=== PATIENT | female | born 1975 | race Caucasian/White ===

== ENCOUNTER 2023-01-01 04:52 | Inpatient (IN) | payer MEDICAID ==
[~2023-01-01] VITALS: Ht 162.6 cm; Wt 76.4 kg
[~2023-01-01 04:52] MED LIST: CLIN150C8 PO; NO HOME MEDS
[2023-01-01] MEDS ORDERED: normal saline 1000ML IV soln IV ONE (08:05)
[2023-01-01 09:49] LABS: BASOPHILS # (AUTO) 0.1 X10'3 (0-0.2); BASOPHILS % (AUTO) 0.2 % (0-1); EOSINOPHILS % (AUTO) 0 % (0-6); HEMOGLOBIN 13.8 g/dl (12.0-16.0); LYMPHOCYTES # (AUTO) 1.1 X10'3 (1.1-4.8); LYMPHOCYTES % (AUTO) 4.2 % (21-51); MEAN CORPUSCULAR HGB CONC 32.9 g/dL (33.0-36.5); MEAN CORPUSCULAR VOLUME 88.1 FL (78-98); MEAN PLATELET VOLUME 9.3 FL (7.4-10.4); MONOCYTES # (AUTO) 1.1 X10'3 (0-0.9); MONOCYTES % (AUTO) 4.3 % (2-12); NEUTROPHILS # (AUTO) 24.4 X10'3 (1.8-7.7); NEUTROPHILS % (AUTO) 91.3 % (42-75); PLATELET COUNT 330 X10'3 (140-440); RED BLOOD COUNT 4.76 X10'6 (4.20-5.60)
[2023-01-01 09:53] LABS: WHITE BLOOD COUNT 26.7 X10'3 (4.5-11.0)
[2023-01-01 10:13] LABS: ALANINE AMINOTRANSFERASE 14 U/L (12-78); ALBUMIN 2.2 G/DL (3.4-5.0); ALBUMIN/GLOBULIN RATIO 0.3 (1.1-1.5); ALKALINE PHOSPHATASE 110 IU/L (46-116); ANION GAP 14 (8-16); ASPARTATE AMINO TRANSFERASE 13 U/L (10-37); BILIRUBIN,TOTAL 0.9 MG/DL (0.1-1.0); BLOOD UREA NITROGEN 17 MG/DL (7-18); BUN/CREATININE RATIO 18.5 (6.6-38.0); CALCIUM 10.7 MG/DL (8.5-10.1); CHLORIDE 87 MMOL/L (99-107); CREATININE 0.92 MG/DL (0.40-0.90); MAGNESIUM 1.7 MG/DL (1.5-2.4); POTASSIUM 4.3 MMOL/L (3.5-5.1); SODIUM 124 MMOL/L (135-145); TOTAL CARBON DIOXIDE 23.4 MMOL/L (24-32); TOTAL PROTEIN 9.5 G/DL (6.4-8.2); eGFR 66 ML/MIN
[2023-01-01 10:16] LABS: GLUCOSE 484 MG/DL (70-104)
[2023-01-01] MEDS ORDERED: ondansetron/PF 4mg/2ml inj IV ONE (10:25)
[2023-01-01] MEDS ORDERED: insulin regular, human 10 units/0.1 ml syringe IV ONE (10:25)
[2023-01-01] MEDS ORDERED: azithromycin/NS 500mg/250ml 250 ML IV ONE (10:25)
[2023-01-01] MEDS ORDERED: CefTRIAXone/D5W-Rocephin 1gm 50 ML IV ONE (10:25)
[2023-01-01] MEDS ORDERED: normal saline 1000ML IV soln IVB ONE (10:25)
[2023-01-01 10:44] LABS: TOTAL CELLS COUNTED 100
[2023-01-01 10:45] LABS: PLATELET ESTIMATE NORMAL
[2023-01-01] MEDS ORDERED: ondansetron/PF 4mg/2ml inj IV PRN (11:05)
[2023-01-01] MEDS ORDERED: glucagon, human recombinant 1mg kit SUBCUT PRN (11:05)
[2023-01-01] MEDS ORDERED: DEXTROSE 15 GM of carb/4 tabs (each vial/BOTTLE has 4 tablets) PO PRN ×2 (11:05)
[2023-01-01] MEDS ORDERED: mag hydrox/Alum hydrox/simeth 30ml oral suspension PO PRN (11:05)
[2023-01-01] MEDS ORDERED: magnesium hydroxide 30ml (MOM) UD suspension PO PRN (11:05)
[2023-01-01] MEDS ORDERED: MESSAGE TO PHARMACY PO ONE (11:05)
[2023-01-01] MEDS ORDERED: morphine 2 MG/ML inj. syringe IV PRN (11:05)
[2023-01-01] MEDS ORDERED: acetaminophen 325mg tablet PO PRN ×2 (11:05)
[2023-01-01] MEDS ORDERED: dextrose 50%-water 50ml dispensing syringe IV PRN ×2 (11:05)
[2023-01-01 11:30] LABS: HEMOGLOBIN A1C > 12.0 % (4.5-6.2)
[2023-01-01] MEDS: normal saline 1000ml 1,000 ML IV SCH ×3 (11:44→21:38)
[2023-01-01 11:50] LABS: COLOR,URINE YELLOW (Yellow); GLUCOSE, URINE >=1000 mg/dl (Neg); KETONES,URINE >=80 mg/dl (Neg); LEUKOCYTE ESTERASE ,URINE NEGATIVE (Neg); NITRITES, URINE NEGATIVE (Neg); OCCULT BLOOD,URINE LARGE (Neg); PROTEIN,URINE NEGATIVE (Neg); UROBILINOGEN,URINE 0.2 E.U/dL (0.2-1.0)
[2023-01-01 11:54] LABS: UA COLLECTION TYPE OTHER
[2023-01-01 11:55] LABS: CLARITY,URINE SLIGHTLY CLOUDY (Clear)
[2023-01-01 11:57] LABS: BACTERIA,URINE NONE SEEN /HPF (Neg); SQUAMOUS EPITHELIAL CELL,UR FEW /LPF (FEW); WBC,URINE 0-4 /HPF (0-4)
--- NOTE | 2023-01-01 14:19 | NUR ---
Pt with green bile emesis
[2023-01-01] MEDS: metoclopramide 5 mg/ml inj IV PRN (14:26)
[2023-01-01] MEDS ORDERED: UNABLE TO OBTAIN (15:05)
--- NOTE | 2023-01-01 18:33 | NUR ---
Pt sleeping. IVF running. Pt in no obvious distress. Will continue to monitor.
[2023-01-01 19:00] VITALS: BP 114/76
--- NOTE | 2023-01-01 19:00 | NUR ---
Patient in room PCU 3024. I have received report from Jose DIAL RN and had the opportunity to ask questions and assume patient care.
--- NOTE | 2023-01-01 19:30 | NUR ---
pt arrived on the unit, little lethargic, in no apparent distress, vital are within normal limits
[2023-01-01] MEDS: docusate sod 100mg capsule PO SCH (20:00)
[2023-01-01] MEDS: morphine 2 MG/ML inj. syringe IV PRN (21:44)
[2023-01-01 22:00] VITALS: BP 123/76
[2023-01-01] MEDS: insulin glargine (Lantus) pen - multi-dose SQ SCH (23:18)
[2023-01-02] VITALS (9 sets, daily range): BP systolic 107–130; BP diastolic 43–79
[2023-01-02] MEDS: morphine 2 MG/ML inj. syringe IV PRN ×3 (01:46→22:23)
[2023-01-02] MEDS: normal saline 1000ml 1,000 ML IV SCH ×4 (02:08→22:20)
--- NOTE | 2023-01-02 02:54 | NUR ---
ORTHOSTATIC VITALS WAS NOT DONE BECAUSE PT CANNOT STAND UP AT ALL Addendum: 01/02/23 at 0258 by Dorina Espinoza RN Amended: Links added.
[2023-01-02 06:43] LABS: BASOPHILS # (AUTO) 0.1 X10'3 (0-0.2); BASOPHILS % (AUTO) 0.7 % (0-1); EOSINOPHILS % (AUTO) 0.2 % (0-6); HEMATOCRIT 37.6 % (35.0-45.0); HEMOGLOBIN 12.5 g/dl (12.0-16.0); LYMPHOCYTES # (AUTO) 2.5 X10'3 (1.1-4.8); MEAN CORPUSCULAR HEMOGLOBIN 29.3 PG (27.0-31.0); MEAN CORPUSCULAR HGB CONC 33.2 g/dL (33.0-36.5); MEAN CORPUSCULAR VOLUME 88.3 FL (78-98); MEAN PLATELET VOLUME 9.3 FL (7.4-10.4); MONOCYTES # (AUTO) 0.5 X10'3 (0-0.9); MONOCYTES % (AUTO) 2.9 % (2-12); NEUTROPHILS # (AUTO) 13.4 X10'3 (1.8-7.7); NEUTROPHILS % (AUTO) 81.2 % (42-75); PLATELET COUNT 279 X10'3 (140-440); RED BLOOD COUNT 4.26 X10'6 (4.20-5.60); RED CELL DISTRIBUTION WIDTH 13.4 % (11.5-14.5); WHITE BLOOD COUNT 16.5 X10'3 (4.5-11.0)
--- NOTE | 2023-01-02 06:49 | NUR ---
Problems reprioritized. Patient report given, questions answered & plan of care reviewed with Hailey GUZMÁN.
[2023-01-02 07:02] LABS: ALBUMIN 1.5 G/DL (3.4-5.0); ANION GAP 12 (8-16); BLOOD UREA NITROGEN 12 MG/DL (7-18); BUN/CREATININE RATIO 23.5 (6.6-38.0); CALCIUM 8.8 MG/DL (8.5-10.1); CHLORIDE 102 MMOL/L (99-107); CREATININE 0.51 MG/DL (0.40-0.90); GLUCOSE 254 MG/DL (70-104); POTASSIUM 3.7 MMOL/L (3.5-5.1); SODIUM 133 MMOL/L (135-145); TOTAL CARBON DIOXIDE 19.5 MMOL/L (24-32); eGFR > 90 ML/MIN
[2023-01-02] MEDS: HYDROcodone/acetaminophen 5mg/325mg tablet PO PRN ×2 (07:50→11:44)
[2023-01-02] MEDS: docusate sod 100mg capsule PO SCH ×2 (07:50→20:00)
[2023-01-02] MEDS: enoxaparin 40mg/0.4ml syringe SUBCUT SCH (07:51)
[2023-01-02] MEDS: CefTRIAXone/D5W-Rocephin 1gm 50 ML IV SCH (07:51)
[2023-01-02] MEDS: insulin Lispro (HumaLOG) vial - multi-dose SQ SCH ×3 (08:42→19:56)
[2023-01-02] MEDS: azithromycin/NS 500mg/250ml 250 ML IV SCH (09:43)
[2023-01-02] MEDS: metoclopramide 5 mg/ml inj IV SCH ×2 (13:35→22:23)
--- NOTE | 2023-01-02 14:28 | NUR ---
Per EMR pt with T2DM, poorly controlled with A1c >12.0% and BG 563 mg/dL on admit. Per physical assessment pt A/O x 4 however pt with metabolic encephalopathy on admit and is a poor historian per physician notes. Per ED report pt "has known diabetes and has not taken her medications for "a lot of days," and does not know why". Attempted visit with pt at bedside however pt sleeping and barely woke with verbal cues. Written DM education with RD contact information left at bedside. Will continue to follow and attempt f/u verbal education at another time. Addendum: 01/02/23 at [address] Amended: Links added.
--- NOTE | 2023-01-02 14:29 | NUR ---
Paged Dr. Nicole of the following micro results: blood cultures show gram positive cocci in pairs and short chains seen in anaerobic bottle
--- NOTE | 2023-01-02 18:00 | NUR ---
Patient in room PCU 3022. I have received report from Hailey GUZMÁN and had the opportunity to ask questions and assume patient care.
[2023-01-02] MEDS: HYDROcodone/acetaminophen 10/325mg tab PO PRN (19:59)
[2023-01-02] MEDS: insulin glargine (Lantus) pen - multi-dose SQ SCH (22:41)
[2023-01-03 02:00] VITALS: BP 121/62
[2023-01-03] MEDS: morphine 2 MG/ML inj. syringe IV PRN ×2 (02:47→07:14)
[2023-01-03] MEDS: metoclopramide 5 mg/ml inj IV SCH ×4 (02:48→21:12)
[2023-01-03 06:00] VITALS: BP 125/73
--- NOTE | 2023-01-03 06:59 | NUR ---
Problems reprioritized. Patient report given, questions answered & plan of care reviewed with Jazmyne GUZMÁN.
[2023-01-03] MEDS: CefTRIAXone/D5W-Rocephin 1gm 50 ML IV SCH (07:16)
[2023-01-03] MEDS: docusate sod 100mg capsule PO SCH ×2 (07:19→21:13)
[2023-01-03] MEDS: azithromycin/NS 500mg/250ml 250 ML IV SCH (08:40)
[2023-01-03] MEDS: enoxaparin 40mg/0.4ml syringe SUBCUT SCH (08:41)
[2023-01-03] MEDS: insulin Lispro (HumaLOG) vial - multi-dose SQ SCH ×2 (08:44→19:32)
[2023-01-03] MEDS: normal saline 1000ml 1,000 ML IV SCH ×2 (08:44→21:14)
[2023-01-03 09:00] LABS: BASOPHILS % (AUTO) 0.6 % (0-1); EOSINOPHILS % (AUTO) 0.6 % (0-6); HEMATOCRIT 37.6 % (35.0-45.0); HEMOGLOBIN 12.6 g/dl (12.0-16.0); LYMPHOCYTES # (AUTO) 2.2 X10'3 (1.1-4.8); LYMPHOCYTES % (AUTO) 29.5 % (21-51); MEAN CORPUSCULAR HEMOGLOBIN 29.4 PG (27.0-31.0); MEAN CORPUSCULAR HGB CONC 33.5 g/dL (33.0-36.5); MEAN CORPUSCULAR VOLUME 87.8 FL (78-98); MEAN PLATELET VOLUME 9.5 FL (7.4-10.4); MONOCYTES # (AUTO) 0.4 X10'3 (0-0.9); MONOCYTES % (AUTO) 5.1 % (2-12); NEUTROPHILS # (AUTO) 4.7 X10'3 (1.8-7.7); NEUTROPHILS % (AUTO) 64.2 % (42-75); PLATELET COUNT 304 X10'3 (140-440); RED BLOOD COUNT 4.28 X10'6 (4.20-5.60); RED CELL DISTRIBUTION WIDTH 13.2 % (11.5-14.5); WHITE BLOOD COUNT 7.3 X10'3 (4.5-11.0)
[2023-01-03 09:27] LABS: ALBUMIN 1.6 G/DL (3.4-5.0); ANION GAP 6 (8-16); BLOOD UREA NITROGEN 9 MG/DL (7-18); BUN/CREATININE RATIO 17.6 (6.6-38.0); CALCIUM 8.7 MG/DL (8.5-10.1); CHLORIDE 103 MMOL/L (99-107); CREATININE 0.51 MG/DL (0.40-0.90); GLUCOSE 274 MG/DL (70-104); POTASSIUM 3.1 MMOL/L (3.5-5.1); SODIUM 135 MMOL/L (135-145); TOTAL CARBON DIOXIDE 26.4 MMOL/L (24-32); eGFR > 90 ML/MIN
[2023-01-03] MEDS: HYDROmorphone inj. 0.5 MG/0.5 ML DISP.SYRIN IV PRN ×3 (10:05→18:09)
[2023-01-03 11:00] VITALS: BP 120/68
[2023-01-03] MEDS: HYDROcodone/acetaminophen 10/325mg tab PO PRN ×2 (12:24→16:22)
--- NOTE | 2023-01-03 13:29 | NUR ---
PAGER ID: [phone] MESSAGE: Buffy Marks in [id number] - potassium is 3.1. Do you want to replace? No protocol ordered. -Jazmyne [phone]
[2023-01-03] MEDS: metoclopramide 5 mg/ml inj IV PRN (14:01)
[2023-01-03 18:00] VITALS: BP 123/70
--- NOTE | 2023-01-03 19:50 | NUR ---
paged MESSAGE: Kendrick Baer in rm 3311 admitted for PNA is crying and requesting for ativan.Ritika [facility] 8624
[2023-01-03 20:00] VITALS: BP 130/76
--- NOTE | 2023-01-03 20:04 | NUR ---
paged MESSAGE: Kendrick Baer rm 9723 has magnesium level of 3.1, I need order for replacement protocol .Ritika u [id number]. per 's order,start replacement protocol.
[2023-01-03] MEDS ORDERED: potassium Cl 20 mEq SR tablet PO PRN ×2 (20:10)
[2023-01-03] MEDS ORDERED: magnesium Cl slow-release 64mg tablet PO PRN (20:10)
[2023-01-03] MEDS ORDERED: potassium Cl 40MEQ/1/2NS 520ml 520 ML IV PRN (20:10)
[2023-01-03] MEDS ORDERED: magnesium 4gm in 100ml NS 100 ML IV PRN (20:10)
[2023-01-03] MEDS ORDERED: LORazepam 0.5 MG tablet PO PRN (20:10)
[2023-01-03] MEDS: LORazepam 2 mg/ml vial IV PRN (21:10)
[2023-01-03 22:00] VITALS: BP 133/80
[2023-01-03] MEDS: HYDROcodone/acetaminophen 5mg/325mg tablet PO PRN (22:03)
[2023-01-03] MEDS: insulin glargine (Lantus) pen - multi-dose SQ SCH (22:14)
[2023-01-04] MEDS: HYDROmorphone inj. 0.5 MG/0.5 ML DISP.SYRIN IV PRN (00:49)
[2023-01-04 02:00] VITALS: BP 135/76
[2023-01-04] MEDS: metoclopramide 5 mg/ml inj IV SCH ×2 (02:18→07:28)
[2023-01-04] MEDS: normal saline 1000ml 1,000 ML IV SCH (05:55)
[2023-01-04 06:00] VITALS: BP 134/74
--- NOTE | 2023-01-04 06:34 | NUR ---
Problems reprioritized. Patient report given, questions answered & plan of care reviewed with Tarsha GUZMÁN.
--- NOTE | 2023-01-04 06:38 | NUR ---
Patient in room PCU 3022. I have received report from Ritika and had the opportunity to ask questions and assume patient care.
[2023-01-04] MEDS: LORazepam 2 mg/ml vial IV PRN (07:25)
[2023-01-04] MEDS: CefTRIAXone/D5W-Rocephin 1gm 50 ML IV SCH (07:28)
[2023-01-04] MEDS: enoxaparin 40mg/0.4ml syringe SUBCUT SCH (07:29)
[2023-01-04] MEDS: docusate sod 100mg capsule PO SCH (07:36)
[2023-01-04] MEDS ORDERED: K and/or MAG REPLACEMENT MC SCH (08:00)
[2023-01-04 08:03] LABS: BASOPHILS % (AUTO) 0.7 % (0-1); EOSINOPHILS % (AUTO) 0.7 % (0-6); HEMATOCRIT 36.8 % (35.0-45.0); HEMOGLOBIN 12.4 g/dl (12.0-16.0); LYMPHOCYTES # (AUTO) 2.2 X10'3 (1.1-4.8); LYMPHOCYTES % (AUTO) 32.6 % (21-51); MEAN CORPUSCULAR HEMOGLOBIN 29.6 PG (27.0-31.0); MEAN CORPUSCULAR HGB CONC 33.6 g/dL (33.0-36.5); MEAN PLATELET VOLUME 8.7 FL (7.4-10.4); MONOCYTES # (AUTO) 0.3 X10'3 (0-0.9); MONOCYTES % (AUTO) 4.9 % (2-12); NEUTROPHILS # (AUTO) 4.1 X10'3 (1.8-7.7); NEUTROPHILS % (AUTO) 61.1 % (42-75); PLATELET COUNT 295 X10'3 (140-440); RED BLOOD COUNT 4.18 X10'6 (4.20-5.60); RED CELL DISTRIBUTION WIDTH 13.2 % (11.5-14.5); WHITE BLOOD COUNT 6.6 X10'3 (4.5-11.0)
[2023-01-04 08:17] LABS: ALBUMIN 1.9 G/DL (3.4-5.0); ANION GAP 7 (8-16); BLOOD UREA NITROGEN 6 MG/DL (7-18); BUN/CREATININE RATIO 10.5 (6.6-38.0); CHLORIDE 106 MMOL/L (99-107); CREATININE 0.57 MG/DL (0.40-0.90); GLUCOSE 215 MG/DL (70-104); SODIUM 139 MMOL/L (135-145); TOTAL CARBON DIOXIDE 26.1 MMOL/L (24-32); eGFR > 90 ML/MIN
[2023-01-04] MEDS: azithromycin/NS 500mg/250ml 250 ML IV SCH (09:42)
[2023-01-04] MEDS: insulin Lispro (HumaLOG) vial - multi-dose SQ SCH (09:58)
[2023-01-04] MEDS: HYDROcodone/acetaminophen 5mg/325mg tablet PO PRN (10:02)
[2023-01-04] MEDS ORDERED: POTA-207 PO (11:44)
[2023-01-04] MEDS ORDERED: LINE600T11 PO (11:44)
[2023-01-04] MEDS ORDERED: METF-517 PO (11:44)
[2023-01-04] MEDS ORDERED: INSU100I75 SQ (11:44)
[2023-01-04] MEDS ORDERED: METO10TA3 PO (11:44)
[2023-01-04] MEDS ORDERED: NEED-136 SQ (11:48)
--- NOTE | 2023-01-04 13:09 | NUR ---
Attempted to assist patient with calling a friend to pick her up. No answer on the phone. Attempted to provide patient with discharge information and possibility of a taxi to get her to her friend's house. Patient stated she "just wants to leave". Patient then stated "you are kicking me out on my birthday". Patient was unable to provide an address for the taxi and asked if she could just tell the straight truck driver the location was "[place]where on [facility] Advised patient the full service vending driver would need an address prior to picking up the patient. Patient stated she would just walk then and did not want to wait any longer. Patient dressed herself and was walking down the unit hallway, stating she did not want this RN to review the discharge instructions. She did ask if any pain medications were prescribed and was disinterested when she realized there was not. Patient was wheeled downstairs to the entrance of the hospital. Patient was dressed in her own clothing and had a blanket with her. No other belongings were present. Patient was escorted outside of the hospital where she approached a woman standing outside and demanded a cigarette from her. Said person told patient she didn't smoke and the patient said "I don't care, I just need a cigarette". Patient then began to exit the parking lot.
== END 2023-01-04 13:08 | disposition home or self-care (01) | DRG 720 ==
LOC: ER 04:53 → ED HOLD 11:07 → PCU 3S 19:41
PROVIDERS: ADMIT Internal Medicine; ATTEND Internal Medicine
DX: A40.3 Sepsis due to Streptococcus pneumoniae (principal); N17.0 Acute kidney failure with tubular necrosis; G93.41 Metabolic encephalopathy; J18.9 Pneumonia, unspecified organism; E87.1 Hypo-osmolality and hyponatremia; E86.0 Dehydration; B95.3 Streptococcus pneumoniae as the cause of diseases classified elsewhere; E11.65 Type 2 diabetes mellitus with hyperglycemia; E87.6 Hypokalemia; F11.90 Opioid use, unspecified, uncomplicated; F15.90 Other stimulant use, unspecified, uncomplicated; G89.29 Other chronic pain; K57.90 Diverticulosis of intestine, part unspecified, without perforation or abscess without bleeding; M54.9 Dorsalgia, unspecified; Z79.4 Long term (current) use of insulin; Z79.84 Long term (current) use of oral hypoglycemic drugs; Z80.7 Family history of other malignant neoplasms of lymphoid, hematopoietic and related tissues; Z82.5 Family history of asthma and other chronic lower respiratory diseases; Z88.0 Allergy status to penicillin; Z88.1 Allergy status to other antibiotic agents; Z90.13 Acquired absence of bilateral breasts and nipples; Z88.5 Allergy status to narcotic agent
CPT/HCPCS: 36415; 71045; 74176; 80048; 80053; 81001; 82948; 83036; 83605; 83735; 83880; 84145; 85007; 85025; 87040; 87077; 87186; 93005; 99285; G0378; J0456; J0696; J1170; J1650; J1815; J2060; J2270; J2405; J2765; J7030; J7040

== ENCOUNTER 2025-03-15 16:03 | Outpatient (CLI) | payer MEDICAID ==
[~2025-03-15 16:03] MED LIST changes: -CLIN150C8 PO; +INSU100I75 SQ; +LINE600T11 PO; +METF-517 PO; +METO10TA3 PO; +NEED-136 SQ; -NO HOME MEDS; +POTA-207 PO
--- NOTE | 2025-03-16 06:11 | ELECTROCARDIOGRAPH REPORT ---
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 Ml Shin Measurements Intervals [place] Rate: 60 P: 54 [place]: 177 QRS: 52 QRSD: 88 T: 62 QT: 466 QTc: 466 Interpretive Statements Sinus rhythm Probable left atrial enlargement Electronically Signed On 03-16-2025 11:37:[address] Ml Shin Please click the below link to view image of tracing.
== END 2025-03-15 23:59 | disposition home or self-care (01) ==
LOC: RAD 16:03
PROVIDERS: ATTEND Physician Assistant
DX: F11.20 Opioid dependence, uncomplicated (principal); I49.8 Other specified cardiac arrhythmias
CPT/HCPCS: 93005

== ENCOUNTER 2025-05-31 09:10 | Outpatient (CLI) | payer MEDICAID ==
--- NOTE | 2025-05-31 09:49 | ELECTROCARDIOGRAPH REPORT ---
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 LESLIE Rashid Measurements Intervals [place] Rate: 61 P: 44 [place]: 178 QRS: 19 QRSD: 82 T: 52 QT: 438 QTc: 442 Interpretive Statements Sinus rhythm Left atrial enlargement Abnormal R-wave progression, early transition Electronically Signed On 05-31-2025 17:26:[address] LESLIE Rashid Please click the below link to view image of tracing.
== END 2025-05-31 23:59 | disposition home or self-care (01) ==
LOC: RAD 09:10
PROVIDERS: ATTEND Physician Assistant
DX: R94.31 Abnormal electrocardiogram [ECG] [EKG] (principal); F11.20 Opioid dependence, uncomplicated
CPT/HCPCS: 93005

== ENCOUNTER 2025-07-01 00:30 | Emergency (ER) | payer MEDICAID ==
[~2025-07-01] VITALS: Ht 157.5 cm; Wt 90.1 kg
--- NOTE | 2025-07-01 01:41 | ELECTROCARDIOGRAPH REPORT ---
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
[2025-07-01 02:50] VITALS: BP 137/78; PULSE 58; RESP 16; TEMP 98; O2SAT 96
--- NOTE | 2025-07-01 04:51 | Physician Documentation ---
History of Present Illness ~ Chief Complaint: See Chief Complaint Stated Complaint: GENERAL ILLNESS Time Seen by MD: 04:17 Primary Medical Doctor: REYNALDO CABRERA Source: patient, EMS, EMS notes reviewed Mode of Arrival: EMS Exam Limitations: no limitations HPI Chief Complaint: Cough, fever Caveat: None Independent Historians: Paramedics History of Present Illness: Patient is a 50-year-old woman who comes in complaining of cough and fever that began one week ago. Patient has had a productive cough of green sputum. Patient complains of body aches. Patient als o complains of left ear pain that woke her from sleep. Patient states that she tested negative for COVID two days ago. Patient denies any nausea vomiting diarrhea. No abdominal pain. Patient denies any alleviating or exacerbating factors. Review of systems: All systems were reviewed and are negative except for what is indicated in the history of present illness. Past Medical History: Necrotizing fasciitis 2014, type 2 diabetes Past Surgical History: Surgery for necrotizing fasciitis over the chest Social History: Tobacco Use, denies alcohol use, denies drug use Medications: Reviewed as documented Nursing Notes Allergies: Reviewed as documented in Nursing Notes Medication Reconciliation Allergies: Coded Allergies: Penicillins (Verified Allergy, Severe, ANAPHYLAXIS, 07/01/25) codeine (Unverified Allergy, Intermediate, HIVES, 07/01/25) ABLE TO TAKE NORCO levofloxacin (Verified Allergy, Mild, 07/01/25) red line going up patients arm per recovery room Scheduled Azithromycin (Zithromax), 1 TAB PO DAILY Insulin Glargine,Hum.rec.anlog (Insulin Glargine Solostar), 16 UNITS SQ QPM Linezolid (ZYVOX tablet), 1 TAB PO Q12H Metformin HCl (Metformin HCl ER), 1 TAB PO DAILY Potassium Chloride* (K-Dur*), 2 TAB PO DAILY Scheduled PRN Metoclopramide Hcl* (Metoclopramide Hcl*), 1 TAB PO Q6H PRN for nausea/vomiting Durable Medical Equipment [place], Insulin Disposable (Bd Ultra-Fine Pen Needle), NDL SQ DAILY, (DME) Past Medical History Past Medical History: Diabetes, Chronic Back Pain, MRSA Abscess Past Surgical History: orthopedic surgeries, other Other Past Surgical History: Bilateral mastectomy, skin graft Patient History: (COPD) Chronic obstructive lung disease MOTHER FH: emphysema FATHER FH: lymphoma, malignant MOTHER Alcohol Use: None Drug Use: methamphetamine, heroin Lives with: Family Lives In: Home Occupation: employed Review of Systems All Other Systems at this time: Reviewed and Negative ROS Patient denies any other acute symptoms other than above. All other systems are negative Physical Exam Vital Signs: RN Vital Signs have been reviewed: Yes, Temperature: 98.0, Source: Oral, Heart Rate: 58, Respiratory Rate: 16, BP: 137/78, Pulse Oximetry: 96, Weight: 90.100 Oxygen Flow Rate: 0 Pulse Oximetry Reflects: adequate oxygenation Physical Exam General Appearance: CHRONICALLY ILL-APPEARING, MILD DISTRESS HEENT: Normal OP, moist oral mucosa, PERRL, EOMI, LEFT TM IS ERYTHEMATOUS WITH DECREASED DULL LIGHT REFLEX, EXTERNAL LEFT EAR CANAL APPEARS NORMAL. HOWEVER SHE DOES HAVE LEFT TRAGUS TENDERNESS IN FARAHNA TENDERNESS. RIGHT TM IS NORMAL. Neck: supple, normal ROM, trachea midline Pulmonary: No respiratory distress, CTA, BS equal Cardiac: RRR, no murmur, rub or gallop, GI: nondistended, soft, nontender, normal bowel sounds, no guarding, no rebound Extremities: normal ROM, no swelling, non-tender Skin: intact, dry, warm, no rashes Neuro: AAOx3, speech is clear, no focal motor weakness Psych: normal affect, good eye contact, no apparent hallucination, normal speech Progress Results/Orders Results/Orders Orders - ALIDA MORALES MD Covid19 Binax Poc Result Entry (07/01/25 04:41) Chest,Single View (07/01/25 04:41) Completed Orders - ALIDA MORALES MD 15 Lead Ekg (07/01/25 ) Chest,Single View (07/01/25 04:41) Ketorolac Trometh 15mg/Ml Vial (Toradol (07/01/25 04:45) Acetaminophen 325mg Tablet (Tylenol Tabl (07/01/25 04:45) Acetaminophen 325mg Tablet (Tylenol Tabl (07/01/25 04:45) Azithromycin Tablet (Zithromax Tablet) (07/01/25 04:45) Medications Received in ER Medications (Trade) Dose Ordered Sig/Marcela Route PRN Reason Start Time Stop Time Status Last Admin Dose Admin (Toradol injection) 15 mg ONCE ONCE IM 07/01/25 04:45 07/01/25 04:46 DC 07/01/25 05:01 15 MG (Tylenol tablet) 325 mg ONCE ONCE PO 07/01/25 04:45 07/01/25 04:46 DC 07/01/25 04:59 325 MG (Zithromax tablet) 500 mg ONCE ONCE PO 07/01/25 04:45 07/01/25 04:46 DC 07/01/25 05:00 500 MG Vital Signs 07/01/25 07/01/25 07/01/25 07/01/25 00:33 01:17 01:18 02:50 Temp 98.1 98.3 98.0 Pulse 72 63 58 Resp 16 20 20 16 B/P (MAP) 145/79 155/88 (110) 137/78 (97) Pulse Ox 95 95 96 O2 Flow Rate 0 Laboratory Tests Test 07/01/25 04:46 SARS-CoV-2 Antigen (Rapid) Negative Medical Decision Making Findings Differential diagnosis includes but is not limited to: COVID, acute bronchitis, pneumonia, other viral URI EKG independent interpretation: Performed at 1:40 a.m.. Normal sinus rhythm, heart rate 62, normal axis, normal ST segments Chest x-ray, single view, indication: Cough, fever Independent interpretation: Lungs are clear, normal mediastinum, normal cardiac silhouette Laboratory data independent interpretation: Serology: COVID negative Emergency department course/medical decision-making: Patient is a 50-year-old woman who comes in with cough, fever and other URI symptoms. Patient is COVID negative. No evidence of pneumonia on the chest x- ray. Patient is believed to have acute bacterial bronchitis. Patient is started on Zithromax. Patient isn't requiring oxygen. She is in no respiratory distress. Patient was given Tylenol here for pain along with Toradol. Patient is stable for discharge. Test results and treatment plan and all the above was reviewed with the patient prior to discharge. Departure Time of Disposition: 05:27 Disposition: 01 HOME / SELF CARE / HOMELESS Impression: Primary Impression: Acute bronchitis Qualified Codes: J20.9 - Acute bronchitis, unspecified Condition: Stable Discharge Instructions: Acute Bronchitis, Adult, [id number] Additional Instructions: FOLLOW UP WITH YOUR DOCTOR NEEDED. RETURN TO THE EMERGENCY DEPARTMENT IF YOUR SYMPTOMS WORSEN. Prescriptions Azithromycin (Zithromax) 250 Mg Tablet 1 TAB PO DAILY for 4 Days, #4 TAB 2 the first day followed by 1 for days 2-5 Prov: ALIDA MORALES MD 07/01/25 Education Educated: Patient Educated regarding: diagnosis, treatment, need for follow up Signature Scribe Signature: No scribe Attestation: No scribe ALIDA MORALES MD Jul 01, 2025 04:51
[2025-07-01] MEDS: ketorolac trometh 15mg/ml vial 15 MG/ML ML IM ONE (05:01)
[2025-07-01] MEDS ORDERED: AZIT250T3 PO (05:29)
--- NOTE | 2025-07-01 05:29 | RADIOLOGY REPORT ---
CHEST RADIOGRAPH Indication: CP Technique: Single frontal view of the chest was obtained COMPARISON: CHEST,SINGLE VIEW on DOS: 01/01/23 FINDINGS: Lines and Tubes: None Lungs: Clear Pleura: No effusion. No pneumothorax. Cardiomediastinal contours: Unremarkable Bones: Unremarkable IMPRESSION: 1. No acute disease.
== END 2025-07-01 05:59 | disposition home or self-care (01) ==
LOC: ER 00:30
DX: J20.9 Acute bronchitis, unspecified (principal); G89.29 Other chronic pain; F15.90 Other stimulant use, unspecified, uncomplicated; F11.90 Opioid use, unspecified, uncomplicated; J44.9 Chronic obstructive pulmonary disease, unspecified; E11.9 Type 2 diabetes mellitus without complications; Z88.0 Allergy status to penicillin; Z88.5 Allergy status to narcotic agent; Z88.1 Allergy status to other antibiotic agents; Z79.899 Other long term (current) drug therapy; Z79.84 Long term (current) use of oral hypoglycemic drugs; Z20.822 Contact with and (suspected) exposure to COVID-19
CPT/HCPCS: 36415; 71045; 87811; 93005; 96372; 99285; J1885